=== PATIENT | female | born 2000 | race Caucasian/White ===

== ENCOUNTER 2018-09-22 18:45 | Emergency (ER) | payer MEDICAID, OTHER ==
[~2018-09-22] VITALS: Ht 162.6 cm; Wt 86.2 kg
--- OUTSIDE RECORDS SUMMARY | 2018-09-22 19:00 | XMS REPORT ---
Author Author SENIA HINTON Organization [facility] Address [address] [place] [address] Care Team Providers Care Chemical Process Equipment Operator Name Role Phone SENIA HINTON Unavailable PROBLEMS Unknown Problems ALLERGIES Substance Reaction Event Type Date Status Wellbutrin hives Drug Allergy Jan, Active ENCOUNTERS Encounter Location Date Diagnosis [facility] [id number] [address] Mar, [facility] [id number] [address] Mar, [facility] [id number] [address] Jan, Encounter for IUD removal Z30.432 and Screening for STD ( sexually transmitted disease) Z11.3 IMMUNIZATIONS No Known Immunizations SOCIAL HISTORY Never Assessed REASON FOR VISIT IUD removal , patient states she has had the Mirena since 2012 it was inserted in [place] -- huma hester PLAN OF CARE Activity Details Follow Up 1 Year with PCP Well woman Reason: VITAL SIGNS Height 5'4" in 2018-02-23 Weight 179.0 lbs 2018-02-23 Temperature 98.0 degrees Fahrenheit 2018-02-23 Heart Rate 86 bpm 2018-02-23 Respiratory Rate 22 2018-02-23 BMI 30.72 kg/m2 2018-02-23 Blood pressure systolic 120 mmHg 2018-02-23 Blood pressure diastolic 76 mmHg 2018-02-23 MEDICATIONS Unknown Medications RESULTS Name Result Date Reference Range TEST, URINE (IN HOUSE) 2018-02-23 RESULTS negative Lot # [id number] Control + Exp date 01/2019 GC/CHLAM URINE (STATE) 2018-02-23 CHLAMYDIA GC PROCEDURES Procedure Date Ordered Result Body Site REMOVE INTRAUTERINE DEVICE February 23, 2018 URINE TEST February 23, 2018 No Charge February 23, 2018 INSTRUCTIONS MEDICATIONS ADMINISTERED No Known Medications MEDICAL (GENERAL) HISTORY Type Description Date Surgical History tonsillectomy 06/2017
--- OUTSIDE RECORDS SUMMARY | 2018-09-22 19:00 | XMS REPORT ---
Author Author SENIA HINTON Organization [facility] [place] Address [address] [place] [address] Care Team Providers Care Education Teacher Name Role Phone SENIA HINTON Unavailable PROBLEMS Unknown Problems ALLERGIES No Information ENCOUNTERS Encounter Location Date Diagnosis [facility] [place] [id number] [address] Mar, [facility] [place] [id number] [address] Mar, [facility] [place] [id number], [place] [address] Jan, Encounter for IUD removal Z30.432 and Screening for STD ( sexually transmitted disease) Z11.3 IMMUNIZATIONS No Known Immunizations SOCIAL HISTORY Never Assessed REASON FOR VISIT STD treatment (STATE) -- huma hester PLAN OF CARE VITAL SIGNS MEDICATIONS Unknown Medications RESULTS No Results PROCEDURES No Known procedures INSTRUCTIONS MEDICATIONS ADMINISTERED No Known Medications MEDICAL (GENERAL) HISTORY Type Description Date Surgical History tonsillectomy 06/2017
--- OUTSIDE RECORDS SUMMARY | 2018-09-22 19:00 | XMS REPORT ---
Author Author SENIA HINTON Organization [facility] Address [address] [place] [address] Care Team Providers Care Oil Recovery Operator Name Role Phone SENIA HINTON Unavailable PROBLEMS Unknown Problems ALLERGIES No Information ENCOUNTERS Encounter Location Date Diagnosis [facility] [address] [facility] [id number] [address] Mar, [facility] [address] [facility] [id number] [address] Mar, [facility] [address] [id number] [address] Jan, Encounter for IUD removal Z30.432 and Screening for STD ( sexually transmitted disease) Z11.3 IMMUNIZATIONS No Known Immunizations SOCIAL HISTORY Never Assessed REASON FOR VISIT Lab Results PLAN OF CARE VITAL SIGNS MEDICATIONS Unknown Medications RESULTS No Results PROCEDURES No Known procedures INSTRUCTIONS MEDICATIONS ADMINISTERED No Known Medications MEDICAL (GENERAL) HISTORY Type Description Date Surgical History tonsillectomy 06/2017
--- NOTE | 2018-09-22 19:16 | ED GU-Female ---
General Stated Complaint: VAG BLEEDING/6 WEEKS PREG Source: patient History of Present Illness Date Seen by Provider: Sep 22, 2018 Time Seen by Provider: 19:05 Initial Comments PT ARRIVES VIA POV FROM HOME STATES SHE IS 4 WEEKS --LMP 08/06/18 STATES SHE BEGAN HAVING VAGINAL BLEEDING/SPOTTING LAST PM STATES SHE HAS USED 2 PANTILINERS TOTAL SINCE BLEEDING STARTED STATES BLEEDING IS "GETTING WORSE BECAUSE IT HASN'T STOPPED" SLIGHT LOWER ABDOMINAL CRAMPING NO PROBLEMS URINATING STATES SHE CALLED THIS AM AND WAS SEEN AT [facility] THIS AM FOR THIS PROBLEM AND HAD ULTRASOUND THERE --PT STATES "EVERYTHING IS FINE AND THE BABY'S FINE" IS SUPPOSED TO HAVE A FOLLOW UP APPOINTMENT NEXT WEEK, BUT APPOINTMENT IS NOT MADE YET PT IS AB 0 PT STATES HER BLOOD TYPE IS A+ PCP: [facility], DR. WARREN Allergies and Home Medications Allergies Coded Allergies: bupropion (Verified Allergy, Unknown, 09/22/18) Patient Home Medication List Home Medication List Reviewed: Yes Review of Systems Review of Systems Constitutional: no symptoms reported Respiratory: no symptoms reported Cardiovascular: no symptoms reported Gastrointestinal: see HPI, abdominal pain Genitourinary: see HPI : Yes LMP: Aug 06, 2018 Musculoskeletal: no symptoms reported Skin: no symptoms reported Psychiatric/Neurological: No Symptoms Reported Endocrine: No Symptoms Reported Hematologic/Lymphatic: No Symptoms Reported Past Jfthewq-Slgqjk-Ziculj Hx Patient Social History Alcohol Use: Denies Use Recreational Drug Use: Yes ("EVERYTHING" INCLUDING METH AND COCAINE. DENIES HEROIN OR RX DRUGS. DENIES IV USE) Drug of Choice: "EVERYTHING" INCLUDING METH AND COCAINE. DENIES HEROIN, RX DRUGS OR IV USE Smoking Status: Current Everyday Smoker (< 1/2 PPD) Recent Foreign Travel: No Contact w/Someone Who Travel: No Past Medical History Surgeries: Yes Adenoidectomy, Tonsillectomy Respiratory: No Cardiac: No Neurological: No : Yes Hx : 1 Hx Para: 0 Hx Total # of Abortions (Sp): 0 Reproductive Disorders: No Genitourinary: No Gastrointestinal: No Musculoskeletal: No Endocrine: No HEENT: No Cancer: No Psychosocial: Yes Suicide Attempts, Depression Integumentary: No Blood Disorders: No Physical Exam Vital Signs Vital Signs - First Documented 09/22/18 19:06 Temp 98.3 Pulse 84 Resp 18 B/P (MAP) 124/77 Capillary Refill : Height, Weight, BMI Height: '" Weight: lbs. oz. kg; BMI Method: General Appearance: WD/WN, no apparent distress HEENT: other (POOR DENTITION--EXTENSIVE DECAY--ESPECIALLY AT GUM LINE, INCLUDING FRONT TEETH. ) Cardiovascular: regular rate, rhythm, no murmur Respiratory: normal breath sounds, no respiratory distress, no accessory muscle use Gastrointestinal: non tender, soft Pelvic: normal external exam, vaginal bleeding (SCANT AMOUNT OF BLOOD IN CANAL. NO ACTIVE BLEEDING. NO CLOTS), other (CERVIX CLOSED. 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 nml as tested, no motor/sensory deficits, alert, normal mood/affect, oriented x 3 Skin: normal color, warm/dry Progress/Results/Core Measures Suspected Sepsis SIRS Temperature: Pulse: Respiratory Rate: Laboratory Tests 09/22/18 19:15: White Blood Count 11.2H Blood Pressure / Mean: Laboratory Tests 09/22/18 19:15: Creatinine 0.70, Platelet Count 297 Results/Orders Lab Results Laboratory Tests Test 09/22/18 19:15 Range/Units White Blood Count 11.2 H 4.3-11.0 10^3/uL Red Blood Count 4.61 4.35-5.85 10^6/uL Hemoglobin 13.4 11.5-16.0 G/DL Hematocrit 39 35-52 % Mean Corpuscular Volume 84 80-99 FL Mean Corpuscular Hemoglobin 29 25-34 PG Mean Corpuscular Hemoglobin Concent 35 32-36 G/DL Red Cell Distribution Width 13.3 10.0-14.5 % Platelet Count 297 130-400 10^3/uL Mean Platelet Volume 9.7 7.4-10.4 FL Neutrophils (%) (Auto) 60 42-75 % Lymphocytes (%) (Auto) 32 12-44 % Monocytes (%) (Auto) 6 0-12 % Eosinophils (%) (Auto) 2 0-10 % Basophils (%) (Auto) 0 0-10 % Neutrophils # (Auto) 6.7 1.8-7.8 X 10^3 Lymphocytes # (Auto) 3.6 1.0-4.0 X 10^3 Monocytes # (Auto) 0.7 0.0-1.0 X 10^3 Eosinophils # (Auto) 0.2 0.0-0.3 10^3/uL Basophils # (Auto) 0.0 0.0-0.1 10^3/uL Sodium Level 139 135-145 MMOL/L Potassium Level 3.6 3.6-5.0 MMOL/L Chloride Level 106 98-107 MMOL/L Carbon Dioxide Level 22 21-32 MMOL/L Anion Gap 11 5-14 MMOL/L Blood Urea Nitrogen 9 7-18 MG/DL Creatinine 0.70 0.60-1.30 MG/DL Estimat Glomerular Filtration Rate > 60 BUN/Creatinine Ratio 13 Glucose Level 87 70-105 MG/DL Calcium Level 9.9 8.5-10.1 MG/DL My Orders Orders - FREDERICK BOWEN DO Abo Rh Type (09/22/18 19:10) Basic Metabolic Panel (09/22/18 19:10) Cbc With Automated Diff (09/22/18 19:10) Hcg,Quantitative (09/22/18 19:10) Vital Signs/I&O 09/22/18 19:06 Temp 98.3 Pulse 84 Resp 18 B/P (MAP) 124/77 Capillary Refill : Progress Note : Progress Note NO ULTRASOUND AVAILABILITY TONIGHT PT DID NOT USE ANY PADS/PANTILINERS DURING ER STAY Departure Impression Primary Impression: Threatened in first trimester Disposition: 01 HOME, SELF-CARE Condition: Stable Departure-Patient Inst. Referrals: LION WARREN MD (PCP/Family) Primary Care Physician Patient Instructions: Bleeding With (DC), Threatened Miscarriage (DC) Add. Discharge Instructions: NOTHING IN VAGINA--NO TAMPONS, DOUCHING OR INTERCOURSE TYLENOL NEEDED FOR PAIN LOTS OF FLUIDS FOLLOW UP WITH [facility] IN 1-2 DAYS FOR RECHECK RETURN TO ER IF SOAKING MORE THAN 1 MAXI PAD AN HOUR FREDERICK BWOEN DO Sep 22, 2018 19:16
[2018-09-22 19:22] LABS: BASOPHILS % (AUTO) 0 % (0-10); EOSINOPHILS # (AUTO) 0.2 10^3/uL (0.0-0.3); EOSINOPHILS % (AUTO) 2 % (0-10); HEMATOCRIT 39 % (35-52); HEMOGLOBIN 13.4 G/DL (11.5-16.0); LYMPHOCYTES # (AUTO) 3.6 X 10^3 (1.0-4.0); LYMPHOCYTES % (AUTO) 32 % (12-44); MEAN CORPUSCULAR HEMOGLOBIN 29 PG (25-34); MEAN CORPUSCULAR HGB CONC 35 G/DL (32-36); MEAN CORPUSCULAR VOLUME 84 FL (80-99); MEAN PLATELET VOLUME 9.7 FL (7.4-10.4); MONOCYTES # (AUTO) 0.7 X 10^3 (0.0-1.0); MONOCYTES % (AUTO) 6 % (0-12); NEUTROPHILS # (AUTO) 6.7 X 10^3 (1.8-7.8); NEUTROPHILS % (AUTO) 60 % (42-75); PLATELET COUNT 297 10^3/uL (130-400); RED CELL DISTRIBUTION WIDTH 13.3 % (10.0-14.5); WHITE BLOOD COUNT 11.2 10^3/uL (4.3-11.0)
[2018-09-22 19:40] LABS: BUN/CREATININE RATIO 13; CALCIUM 9.9 MG/DL (8.5-10.1); CARBON DIOXIDE 22 MMOL/L (21-32); CHLORIDE 106 MMOL/L (98-107); GFR ESTIMATED > 60; GLUCOSE 87 MG/DL (70-105); POTASSIUM 3.6 MMOL/L (3.6-5.0); SODIUM 139 MMOL/L (135-145)
--- NOTE | 2018-09-22 20:00 | NUR ---
INSTRUCTIONS VERBALLY REVIEWED WITH DR. JESSI MD. @ 1999 UPON ENTERING PT ROOM WITH DISCHARGE INSTRUCTIONS, PT NOT IN ROOM. PT SIGNED OUT WITH HEEL FINISHER PRIOR TO LEAVING ED.
== END 2018-09-22 20:00 | disposition home or self-care (01) ==
LOC: ER 18:49
DX: O20.0 Threatened abortion (principal); O99.341 Other mental disorders complicating pregnancy, first trimester; F32.9 Major depressive disorder, single episode, unspecified; O99.331 Smoking (tobacco) complicating pregnancy, first trimester; F17.210 Nicotine dependence, cigarettes, uncomplicated; Z90.89 Acquired absence of other organs; Z91.5 Personal history of self-harm; Z3A.01 Less than 8 weeks gestation of pregnancy; Z88.8 Allergy status to other drugs, medicaments and biological substances
CPT/HCPCS: 36415; 80048; 84702; 85025; 86900; 86901

== ENCOUNTER → 2018-09-25 | Outpatient (CLI) | payer MEDICAID | LOC: LAB 09:41 | PROVIDERS: ATTEND Family Medicine | DX: O20.8 Other hemorrhage in early pregnancy (principal) | CPT/HCPCS: 36415; 84702 ==

== ENCOUNTER 2018-10-14 09:41 | Day surgery (SDC) | payer MEDICAID ==
[~2018-10-14] VITALS: Ht 162.6 cm; Wt 89.4 kg
[2018-10-14 09:45] VITALS: BP 113/65
[2018-10-14 10:17] LABS: BASOPHILS % (AUTO) 1 % (0-10); EOSINOPHILS # (AUTO) 0.2 10^3/uL (0.0-0.3); EOSINOPHILS % (AUTO) 4 % (0-10); HEMATOCRIT 40 % (35-52); HEMOGLOBIN 13.5 G/DL (11.5-16.0); LYMPHOCYTES # (AUTO) 2.1 X 10^3 (1.0-4.0); LYMPHOCYTES % (AUTO) 32 % (12-44); MEAN CORPUSCULAR HEMOGLOBIN 29 PG (25-34); MEAN CORPUSCULAR HGB CONC 34 G/DL (32-36); MEAN CORPUSCULAR VOLUME 84 FL (80-99); MEAN PLATELET VOLUME 9.3 FL (7.4-10.4); MONOCYTES # (AUTO) 0.4 X 10^3 (0.0-1.0); MONOCYTES % (AUTO) 7 % (0-12); NEUTROPHILS # (AUTO) 3.8 X 10^3 (1.8-7.8); NEUTROPHILS % (AUTO) 58 % (42-75); PLATELET COUNT 319 10^3/uL (130-400); RED CELL DISTRIBUTION WIDTH 13.3 % (10.0-14.5); WHITE BLOOD COUNT 6.6 10^3/uL (4.3-11.0)
[2018-10-14] MEDS ORDERED: LACTATED RINGERS 1,000 ML IV PRN (10:24)
[2018-10-14] MEDS ORDERED: FAMOTIDINE 20MG/2ML IV (PEPCID) IV ONE (10:30)
[2018-10-14] MEDS ORDERED: ceFAZolin INJECTION 1,000 MG in WATER (STERILE) FOR INJECTION 10 ML IV ONE (10:45)
[2018-10-14] MEDS ORDERED: LIDOCAINE PF 2% 5 ML (XYLOCAINE) VIAL ONE (10:58)
[2018-10-14] MEDS ORDERED: ONDANSETRON 4 MG/2 ML (SDV) Z0FRAN ONE (10:58)
[2018-10-14] MEDS ORDERED: proPOfol 200 MG/20 ML (DIPRIVAN) VIAL IV ONE (10:58)
[2018-10-14] MEDS ORDERED: MIDAZOLAM 2 MG/2 ML (VERSED) VIAL ONE (10:59)
[2018-10-14] MEDS ORDERED: fentaNYL INJECTION 100 MCG/2 ML AMP ONE (10:59)
[2018-10-14] MEDS ORDERED: DEXAMETHASONE 10 MG/ML (DECADRON) 1 ML VIAL ONE (10:59)
[2018-10-14] MEDS ORDERED: SEVOFLURANE (ULTANE) 15 ML INHAL SOLN ONE ×2 (11:00→12:35)
[2018-10-14] MEDS: ceFAZolin INJECTION 1,000 MG ONE ×2 (12:20→13:28)
[2018-10-14] MEDS: WATER (STERILE) FOR INJECTION 10 ML ONE ×2 (12:20→13:28)
[2018-10-14] MEDS ORDERED: KETOROLAC 30 MG/ML VIAL ONE (12:34)
[2018-10-14] MEDS ORDERED: KETOROLAC 30 MG/ML VIAL IVP ONE (13:00)
--- NOTE | 2018-10-14 13:00 | Operative Report ---
Operative Report Date of Procedure/Surgery Oct 14, 2018 Surgeon (s) SENAIT BATEMAN DO Repair Specialist (s): NA Post-Operative Diagnosis Missed Procedure Performed Suction dilation and curettage Description of Procedure Anesthesia Type: General Estimated blood loss (mL): 250 Specimen(s) collected/removed endometrial curettings Description of the Procedure With informed consent the patient was taken to the operating room, where general anesthesia was found to be adequate. A straight cath was used to drain the bladder. A speculum was placed in the vagina and the cervix was grasped with a tenaculum. The cervix was closed so it was gently dilated with Toribio Dilators to allow insertion of a 8 curved curette. A suction curette was done and then followed with a sharp curette until a gritty texture was heard. A follow up suction was done to remove any additional blood clots from the uterus. The tenaculum was removed from the cervix and then a figure of eight stitch of 2-0 Vicryl was placed to control bleeding from the tenaculum site. The instruments were removed from the vagina. The patient tolerated the procedure well. She was awakened and taken to recovery in stable condition. Sponge, needle and instrument counts correct times two. Findings of the Procedure moderate amount products of conception Allergies and Home Medications Allergies Coded Allergies: bupropion (Verified Allergy, Unknown, 09/22/18) coconut (Unverified Adverse Reaction, Unknown, 10/14/18) Patient Home Medication List Home Medication List Reviewed: Yes SENAIT BATEMAN DO Oct 14, 2018 13:00
[2018-10-14] MEDS ORDERED: IBUP-1773 PO (13:04)
[2018-10-14] MEDS ORDERED: OXYC-529 PO (13:04)
[2018-10-14] MEDS ORDERED: METH0.2T47 PO (13:04)
[2018-10-14] MEDS ORDERED: ACET-2267 PO (13:04)
--- NOTE | 2018-10-14 13:05 | Discharge Inst-Women's Service ---
Discharge Inst-Women's Serv Depart Medication/Instructions New, Converted or Re-Newed RX: RX on Chart Final Diagnosis missed (miscarriage) Consults/Follow Up Additional Follow Up: Yes ([address] Diaz) Activity Activity: Activity as Tolerated Driving Instructions: No Driving for 24 Hours NO SMOKING: NO SMOKING Nothing Inside Vagina: No Douching, No [place], No Tampons Diet Discharge Diet: No Restrictions Symptoms to Report to : Bleeding Excessive, Pain Increased, Fever Over 101 Degrees F, Vaginal Bleeding Increase, Cramps in Feet or Legs, Vaginal Discharge Foul For Any Problems or Questions: Contact Your Physician Skin/Wound Care Bathing Instructions: SENAIT Worthington DO Oct 14, 2018 13:05
[2018-10-14] MEDS ORDERED: morphine INJ 10 MG/ML 1ML (SYR OR VIAL) IVP ONE (13:15)
[2018-10-14] MEDS ORDERED: MEPERIDINE (DEMEROL) INJ 50 MG/ML IVP ONE (13:15)
[2018-10-14] MEDS ORDERED: ONDANSETRON 4 MG/2 ML (SDV) Z0FRAN IVP PRN (13:15)
--- NOTE | 2018-10-14 13:40 | Anesthesia-General Post-Op ---
General Patient Condition Mental Status/LOC: Same as Preop Cardiovascular: Satisfactory Nausea/Vomiting: Absent Respiratory: Satisfactory Pain: Controlled Complications: Absent Post Op Complications Complications None Follow Up Care/Instructions Patient Instructions None needed. Anesthesia/Patient Condition Patient Condition Patient is doing well, no complaints, stable vital signs, no apparent adverse anesthesia problems. No complications reported per nursing. JONI STEPHENS CRNA Oct 14, 2018 13:40
[2018-10-14 13:50] VITALS: BP 116/73
[2018-10-14] MEDS ORDERED: ACETAMINOPHEN 500 MG TAB (TYLENOL) PO ONE (14:15)
[2018-10-14 14:20] VITALS: BP 115/74
[2018-10-14 14:50] VITALS: BP 118/74
[2018-10-14 15:10] VITALS: BP 118/74
== END 2018-10-14 15:15 | disposition home or self-care (01) ==
LOC: SDC 09:41
PROVIDERS: ATTEND Obstetrics & Gynecology
DX: O02.1 Missed abortion (principal); K21.9 Gastro-esophageal reflux disease without esophagitis; Z87.891 Personal history of nicotine dependence
CPT/HCPCS: 36415; 85025; 87081

== ENCOUNTER 2019-02-17 08:18 | Day surgery (SDC) | payer MEDICAID ==
[2019-02-17] VITALS (11 sets, daily range): BP systolic 104–124; BP diastolic 56–75
[~2019-02-17] VITALS: Ht 162.6 cm; Wt 91.7 kg
[~2019-02-17 08:18] MED LIST: ACET-2267 PO; IBUP-1773 PO; METH0.2T47 PO; OXYC-529 PO
[2019-02-17 09:22] LABS: BASOPHILS % (AUTO) 0 % (0-10); EOSINOPHILS # (AUTO) 0.2 10^3/uL (0.0-0.3); EOSINOPHILS % (AUTO) 2 % (0-10); HEMATOCRIT 37 % (35-52); HEMOGLOBIN 12.5 G/DL (11.5-16.0); LYMPHOCYTES % (AUTO) 22 % (12-44); MEAN CORPUSCULAR HEMOGLOBIN 29 PG (25-34); MEAN CORPUSCULAR HGB CONC 34 G/DL (32-36); MEAN CORPUSCULAR VOLUME 84 FL (80-99); MEAN PLATELET VOLUME 9.7 FL (7.4-10.4); MONOCYTES # (AUTO) 0.5 X 10^3 (0.0-1.0); MONOCYTES % (AUTO) 6 % (0-12); NEUTROPHILS # (AUTO) 6.3 X 10^3 (1.8-7.8); NEUTROPHILS % (AUTO) 70 % (42-75); PLATELET COUNT 272 10^3/uL (130-400); RED CELL DISTRIBUTION WIDTH 13.5 % (10.0-14.5)
--- NOTE | 2019-02-17 09:27 | History & Physical-Surgical ---
HPO-Surgical History of Present Illness Chief Complaint: No heartbeat; confirmed by US Referral from [facility] due to missed ab Diagnosis/Surgical Indication: missed AB Procedure: D&C Date of Surgery: Feb 17, 2019 Weight (Pounds): 202 Weight (Ounces): 2.0 Height (Feet): 5 Height (Inches): 4.00 Allergies and Home Medications Allergies Coded Allergies: bupropion (Verified Allergy, Unknown, 09/22/18) coconut (Unverified Adverse Reaction, Unknown, 10/14/18) Patient Home Medication List Home Medication List Reviewed: Yes Past Cnpvuys-Joykhd-Cioxze Hx Patient Social History Number of Children: 0 Number of living children: 0 Employed/Student: employed Drug of Choice: "EVERYTHING" INCLUDING METH AND COCAINE. DENIES HEROIN, RX DRUGS OR IV USE Former Smoker, Quit: Aug 07, 2018 Type Used: Cigarettes 2nd Hand Smoke Exposure: No Recent Foreign Travel: No Contact w/other who traveled: No Recent Hopitalizations: No Seasonal Allergies Seasonal Allergies: No Surgeries Yes Adenoidectomy, Tonsillectomy Respiratory No Cardiovascular No Neurological No Reproductive System Hx Reproductive Disorders: No Genitourinary No Gastrointestinal No Musculoskeletal No Endocrine History of Endocrine Disorders: No HEENT History of HEENT Disorders: No Cancer No Psychosocial History of Psychiatric Problem: Yes Behavioral Health Disorders: Suicide Attempts, Depression Integumentary History of Skin or Integumenta: No Blood Transfusions History of Blood Disorders: No Exam Vital Signs Capillary Refill : Labs Laboratory Tests Test 02/17/19 09:10 Range/Units General Appearance: Alert HEENT: Atraumatic Respiratory: Clear to Auscultation Cardiovascular: Regular Rate Assessment/Plan Assessment and Plan 1. Missed 2. Recurrent miscarriage Plan - suction dilation and curettage. Risks include bleeding, infection, injury to bowel bladder and ureter. Would like testing on tissue if possible. Prophylactic doxycycline (200 mg po) prior to surgery. SENAIT BATEMAN DO Feb 17, 2019 09:27
[2019-02-17] MEDS ORDERED: DOXYCYCLINE IV ONE ×2 (09:45)
[2019-02-17] MEDS ORDERED: NS IV ONE ×2 (09:45)
[2019-02-17] MEDS ORDERED: SEVOFLURANE (ULTANE) 15 ML INHAL SOLN ONE ×2 (09:59→10:58)
[2019-02-17] MEDS ORDERED: LIDOCAINE PF 2% 5 ML (XYLOCAINE) VIAL ONE (09:59)
[2019-02-17] MEDS ORDERED: proPOfol 200 MG/20 ML (DIPRIVAN) VIAL IV ONE (09:59)
[2019-02-17] MEDS ORDERED: MIDAZOLAM 2 MG/2 ML (VERSED) VIAL ONE (09:59)
[2019-02-17] MEDS ORDERED: fentaNYL INJECTION 100 MCG/2 ML AMP ONE (10:00)
[2019-02-17] MEDS ORDERED: DOXY25TA35 PO (10:01)
[2019-02-17] MEDS ORDERED: LURA20TA PO (10:01)
[2019-02-17] MEDS ORDERED: ONDANSETRON 4 MG/2 ML (SDV) Z0FRAN ONE ×2 (10:03→11:57)
--- NOTE | 2019-02-17 10:56 | Progress Note-Pre Operative ---
Pre-Operative Progress Note H&P Reviewed The H&P was reviewed, patient examined and no changes noted. Date Seen by Provider: Feb 17, 2019 Time Seen by Provider: 10:45 Date H&P Reviewed: Feb 17, 2019 Time H&P Reviewed: 09:30 Pre-Operative Diagnosis: missed , recurrent SENAIT BATEMAN DO Feb 17, 2019 10:56
[2019-02-17] MEDS ORDERED: KETOROLAC 30 MG/ML VIAL ONE (10:58)
[2019-02-17] MEDS ORDERED: METHYLERGONOVINE 0.2 MG/ML (METHERGINE) AMP ONE (11:19)
[2019-02-17] MEDS ORDERED: TRANEXAMIC ACID 100 MG/ML 10 ML INJECTION IV ONE (11:28)
[2019-02-17] MEDS ORDERED: LACTATED RINGERS 1,000 ML IV ONE (11:46)
[2019-02-17] MEDS ORDERED: HYDROmorphone 2 MG/ML VIAL (DILAUDID) ONE (11:56)
[2019-02-17] MEDS ORDERED: IBUP-1773 PO (11:59)
[2019-02-17] MEDS ORDERED: OXC5T PO (11:59)
[2019-02-17] MEDS ORDERED: METH0.2T47 PO (11:59)
[2019-02-17] MEDS ORDERED: DOXY200T3 PO (11:59)
[2019-02-17] MEDS ORDERED: ONDANSETRON 4 MG/2 ML (SDV) Z0FRAN IVP PRN (12:00)
[2019-02-17] MEDS ORDERED: HYDROmorphone 2 MG/ML VIAL (DILAUDID) IV ONE (12:00)
[2019-02-17] MEDS ORDERED: MEPERIDINE (DEMEROL) INJ 50 MG/ML IVP ONE (12:00)
[2019-02-17] MEDS ORDERED: morphine INJ 10 MG/ML 1ML (SYR OR VIAL) IVP ONE (12:00)
[2019-02-17] MEDS ORDERED: PROMETHAZINE INJ 25 MG/ML (PHENERGAN) AMP IVP ONE (12:00)
--- NOTE | 2019-02-17 13:26 | Operative Report ---
Operative Report Date of Procedure/Surgery Feb 17, 2019 Surgeon (s) SENAIT BATEMAN DO Office Helper Clerical (s): NA Post-Operative Diagnosis suction dilation and curettage vaginal hemorrhage Procedure Performed suction dilation and curettage Description of Procedure Anesthesia Type: General Estimated blood loss (mL): 1200 Specimen(s) collected/removed products of conception Description of the Procedure With informed consent the patient was taken to the operating room where general anesthesia was found to be adequate. She was then draped in the usual sterile fashion. the bladder was drained of clear, yellow urine with a straight catheter. A speculum was now placed in the vagina and the cervix was grasped with a single toothed tenaculum. The cervix was noted to be non dilated. It was now dilated with Toribio dilators. I then did a suction dilation with a curved suction curette and removed a moderate amount of products of conception. I then followed with a sharp curette until a gritty texture was heard. At this point, she started bleeding. She was not bleeding prior to the surgery. There was a slow continual flow. I continued to suction to attempt to control the hemorrhage. She was given 0.2 mg Methergine x 1. I massaged the uterus, drained the bladder and she still was bleeding. She continued to bleed. I did do a repeat sharp curette and there was a small amount of residual tissue. However, she continued to bleed, slowly but continually. There was no evidence of laceration. she was given 1 gram of IV TXA and eventually with massage and suction, the bleeding slowed. EBL was 1200 ml however. The instruments were removed from the uterus and the vagina. There was good hemostasis at this point. The patient was awakened and taken to recovery in stable. Due to the extensive bleeding, and repeated instrumentation in the uterus, she will be continued on po Doxycycline x 3 days and po Methergine x 3 days. Findings of the Procedure moderate amounts of products of conception, post hemorrhage Allergies and Home Medications Allergies Coded Allergies: bupropion (Verified Allergy, Unknown, 02/17/19) coconut (Unverified Adverse Reaction, Unknown, 02/17/19) Home Medications Doxycycline Hyclate 200 Mg Tablet.dr, 200 MG PO BID Prescribed by: SENAIT BATEMAN on 02/17/19 1154 Doxylamine Succinate 25 Mg Tablet, 25 MG PO HS, (Reported) Ibuprofen 600 Mg Tablet, 600 MG PO Q6H Prescribed by: SENAIT BATEMAN on 02/17/19 115 Lurasidone HCl 20 Mg Tablet, 0.5 TAB PO DAILY, (Reported) Methylergonovine Maleate 0.2 Mg Tablet, 0.2 MG PO Q6H Prescribed by: SENAIT BATEMAN on 02/17/19 115 Oxycodone Hcl 5 Mg Tab, 5 MG PO Q4H PRN for PAIN-SEVERE Prescribed by: SENAIT BATEMAN on 02/17/19 115 Patient Home Medication List Home Medication List Reviewed: SENAIT Forbes DO Feb 17, 2019 13:25
--- NOTE | 2019-02-17 13:27 | Discharge Inst-Women's Service ---
Discharge Inst-Women's Serv Depart Medication/Instructions New, Converted or Re-Newed RX: RX on Chart Final Diagnosis missed post hemorrhage Consults/Follow Up Additional Follow Up: Yes (1 week with Joe) Activity Activity: Activity as Tolerated Driving Instructions: No Driving for 24 Hours NO SMOKING: NO SMOKING Nothing Inside Vagina: No Douching, No [place], No Tampons Diet Discharge Diet: No Restrictions Symptoms to Report to : Swelling Increased, Bleeding Excessive, Eyesight Changes, Fever Over 101 Degrees F, Vaginal Bleeding Increase (greater than 1 pad per hour s 2 hours), Vaginal Discharge Foul For Any Problems or Questions: Contact Your Physician SENAIT BATEMAN DO Feb 17, 2019 13:27
--- OUTSIDE RECORDS SUMMARY | 2019-02-17 18:30 | XMS REPORT ---
Author Author KELVIN LION [facility] Address [address] [place] [address] Care Team Providers Care Gas Utility Worker Name Role Phone HIRAM WARRENHANY Unavailable PROBLEMS Type Condition ICD9-CM Code LFK08-KP Code Onset Dates Condition Status SNOMED Code Problem Mood disorder F39 Active 21499042 Problem Vagina bleeding N93.9 Active 344641625 Problem Amenorrhea N91.2 Active 26296380 Problem Other chronic pain G89.29 Active 93013147 Problem Bipolar disorder, in partial remission, most recent episode depressed F31.75 Active 87958942 ALLERGIES No Information ENCOUNTERS Encounter Location Date Diagnosis [facility] [id number] [place] [address] Dec, [facility] [id number] [place] [address] November, [facility] [id number] [place] [address] November, [facility] [id number] [place] [address] November, [facility] [id number] [place] [address] November, [facility] [id number] [place] [address] Oct, [facility] [address] [address] Oct, test negative Z32.02 [facility] [id number] [place] [address] Oct, Mood disorder F39 [facility] [id number] [place] [address] 04 Oct, 2018 Mood disorder F39 [facility] [address] [address] 29 Sep, 2018 Pre-syncope R55 and Miscarriage O03.9 [facility] [address] [address] 20 Sep, 2018 [facility] [id number] [place] [address] 20 Sep, 2018 [facility] [address] [place] [address] 19 Sep, 2018 Mood disorder F39 [facility] [id number] [place] [address] 14 Sep, 2018 Vaginal bleeding affecting early O20.8 [facility] [address] [place] [address] 14 Sep, 2018 Mood disorder F39 [facility] [id number] [place] [address] 13 Sep, 2018 Vaginal bleeding affecting early O20.8 [facility] [id number] [place] [address] 08 Sep, 2018 Mood disorder F39 [facility] [address] [address] 07 Sep, 2018 [facility] [address] [address] 07 Sep, 2018 Caries K02.9 ; Oral health maintenance status requiring routine preventive dental care K08.9 and Dental examination Z01.20 [facility] [address] [address] 07 Sep, 2018 [facility] [address] [address] 07 Sep, 2018 Vagina bleeding N93.9 [facility] [address] [place] [address] Sep, [facility] [address] [address] Sep, First trimester bleeding O20.9 and 7 weeks gestation of Z3A.01 [facility] [id number] [address] Sep, Mood disorder F39 [facility] [id number] [place] [address] Sep, [facility] [address] [place] [address] Sep, Vaginal bleeding affecting early O20.8 and care in first trimester Z34.91 [facility] [id number] [place] [address] Sep, Screen for STD (sexually transmitted disease) Z11.3 and Vagina bleeding N93.9 [facility] [address] [place] [address] Sep, Vaginal bleeding affecting early O20.8 and care in first trimester Z34.91 [facility] [address] [place] [address] Sep, [facility] [address] [place] [address] Sep, Normal , first Z34.00 and care in first trimester Z34.91 [facility] [address] [address] Sep, [facility] [address] [place] [address] Sep, [facility] [address] [place] [address] Sep, [facility] [address] [place] [address] Sep, [facility] [address] [place] [address] 14 Sep, 2018 Mood disorder F39 [place] [id number] [place] [address] 14 Sep, 2018 [place] [id number] [place] [address] 14 Sep, 2018 [place] [address] [address] 13 Sep, 2018 Normal , first Z34.00 ; care in first trimester Z34.91 ; Syncope, unspecified syncope type R55 ; Chest pain, unspecified type R07.9 ; Bipolar disorder, in partial remission, most recent episode depressed F31.75 ; 5 weeks gestation of Z3A.01 ; Left anterior knee pain M25.562 ; Low back pain M54.5 and Other chronic pain G89.29 [place] [id number] [place] [address] 11 Sep, 2018 [facility] [id number] [place] [address] 09 Sep, 2018 Amenorrhea N91.2 ; Dizziness R42 and Positive test Z32.01 [place] [id number] [place] [address] 17 Mar, 2018 [place] [id number] [place] [address] Mar, [place] [id number] [place] [address] Jan, Encounter for IUD removal Z30.432 and Screening for STD (sexually transmitted disease) Z11.3 IMMUNIZATIONS No Known Immunizations SOCIAL HISTORY Never Assessed REASON FOR VISIT per Dr. Wyatt PLAN OF CARE Activity Details Follow Up prn Reason: VITAL SIGNS Height 5'4" in 2018-09-30 Weight 192.9 lbs 2018-09-30 Temperature 98.4 degrees Fahrenheit 2018-09-30 Heart Rate 93 bpm 2018-09-30 Respiratory Rate 20 2018-09-30 BMI 33.11 kg/m2 2018-09-30 Blood pressure systolic 98 mmHg 2018-09-30 Blood pressure diastolic 58 mmHg 2018-09-30 MEDICATIONS Medication Instructions Dosage Frequency Start Date End Date Duration Status Vitamin 27-0.8 mg Orally Once a day 1 tablet 24h 13 Sep, 2018 30 day(s) Active Melatonin Active Macrobid 100 MG Orally every 12 hrs 1 capsule with food 12h Sep, 7 day(s) Active RESULTS No Results PROCEDURES No Known procedures INSTRUCTIONS MEDICATIONS ADMINISTERED No Known Medications MEDICAL (GENERAL) HISTORY Type Description Date Medical History Bipolar disorder Medical History Borderline personality disorder Medical History Anxiety Medical History Depression Medical History hx of reactive attachment disorder diagnosis Medical History no hx of seizures Surgical History tonsillectomy 06/2017 Surgical History D & C 09/2018
--- OUTSIDE RECORDS SUMMARY | 2019-02-17 18:30 | XMS REPORT ---
Author Author SEVERO PEREZ [facility] Address [address] [place] [address] Care Team Providers Care Meter Engineer Name Role Phone SEVERO PEREZ Unavailable PROBLEMS Type Condition ICD9-CM Code VTX98-IF Code Onset Dates Condition Status SNOMED Code Problem Mood disorder F39 Active 42553092 Problem Vagina bleeding N93.9 Active 844652678 Problem Amenorrhea N91.2 Active 85916154 Problem Other chronic pain G89.29 Active 08165878 Problem Bipolar disorder, in partial remission, most recent episode depressed F31.75 Active 27316348 ALLERGIES No Information ENCOUNTERS Encounter Location Date Diagnosis [place] [address] [address] Dec, [facility] [id number] [place] [address] Oct, [place] [address] [address] 04 Oct, 2018 Mood disorder F39 [place] [id number] [place] [address] Sep, Pre-syncope R55 and Miscarriage O03.9 [facility] [id number] [place] [address] Sep, [facility] [id number] [place] [address] Sep, [place] [address] [address] Sep, Mood disorder F39 [place] [id number] [place] [address] 14 Sep, 2018 Vaginal bleeding affecting early O20.8 [facility] [address], [place] [address] 14 Sep, 2018 Mood disorder F39 [facility] [id number] [place] [address] Sep, Vaginal bleeding affecting early O20.8 [facility] [id number] [place] [address] 08 Sep, 2018 Mood disorder F39 [facility] [id number] [place] [address] Sep, [facility] [id number] [place] [address] Sep, Caries K02.9 ; Oral health maintenance status requiring routine preventive dental care K08.9 and Dental examination Z01.20 [place] [id number] [place] [address] Sep, [facility] [id number] [place] [address] Sep, Vagina bleeding N93.9 [facility] [id number] [place] [address] Sep, [facility] [id number] [place] [address] Sep, First trimester bleeding O20.9 and 7 weeks gestation of Z3A.01 [facility] [address], [place] [address] Sep, Mood disorder F39 [facility] [address], [place] [address] Sep, [facility] [address] [place] [address] Sep, Vaginal bleeding affecting early O20.8 and care in first trimester Z34.91 [facility] [id number] [place] [address] Sep, Screen for STD (sexually transmitted disease) Z11.3 and Vagina bleeding N93.9 [facility] [id number] [place] [address] 22 Sep, 2018 Vaginal bleeding affecting early O20.8 and care in first trimester Z34.91 [facility] [address] [place] [address] Sep, [facility] [id number] [place] [address] Sep, Normal , first Z34.00 and care in first trimester Z34.91 [facility] [id number] [place] [address] 21 Sep, 2018 [facility] [id number] [place] [address] Sep, [facility] [id number] [place] [address] Sep, [facility] [address] [place] [address] Sep, [facility] [id number] [place] [address] 14 Sep, 2018 Mood disorder F39 [facility] [address] [place] [address] 14 Sep, 2018 [facility] [address] [place] [address] 14 Sep, 2018 [facility] [address] [place] [address] 13 Sep, 2018 Normal , first Z34.00 ; care in first trimester Z34.91 ; Syncope, unspecified syncope type R55 ; Chest pain, unspecified type R07.9 ; Bipolar disorder, in partial remission, most recent episode depressed F31.75 ; 5 weeks gestation of Z3A.01 ; Left anterior knee pain M25.562 ; Low back pain M54.5 and Other chronic pain G89.29 [facility] [address], [place] [address] Sep, [facility] [id number] [place] [address] Sep, Amenorrhea N91.2 ; Dizziness R42 and Positive test Z32.01 [facility] [id number] [place] [address] Mar, [facility] [id number] [place] [address] Mar, [facility] [id number] [place] [address] Jan, Encounter for IUD removal Z30.432 and Screening for STD (sexually transmitted disease) Z11.3 IMMUNIZATIONS No Known Immunizations SOCIAL HISTORY Never Assessed REASON FOR VISIT Requests return call PLAN OF CARE VITAL SIGNS MEDICATIONS Unknown [...]
--- OUTSIDE RECORDS SUMMARY | 2019-02-17 18:30 | XMS REPORT ---
Author Author WANDA ADAM [facility] Address [address] [place] [address] Care Team Providers Care Mobile Sales Expert Name Role Phone WANDA ADAM Unavailable PROBLEMS Type Condition ICD9-CM Code HCM00-WP Code Onset Dates Condition Status SNOMED Code Problem Mood disorder F39 Active 10561575 Problem Vagina bleeding N93.9 Active 083843372 Problem Amenorrhea N91.2 Active 23236011 Problem Other chronic pain G89.29 Active 78552218 Problem Bipolar disorder, in partial remission, most recent episode depressed F31.75 Active 88562931 ALLERGIES No Information ENCOUNTERS Encounter Location Date Diagnosis [place] [address] [address] Dec, [facility] [id number] [place] [address] 15 Oct, 2018 [facility] [address] [address] 04 Oct, 2018 Mood disorder F39 [facility] [id number] [place] [address] 29 Sep, 2018 Pre-syncope R55 and Miscarriage O03.9 [facility] [id number] [place] [address] Sep, [facility] [id number] [place] [address] Sep, [facility] [id number] [place] [address] 19 Sep, 2018 Mood disorder F39 [facility] [id number] [place] [address] 14 Sep, 2018 Vaginal bleeding affecting early O20.8 [place] [address] [address] 14 Sep, 2018 Mood disorder F39 [facility] [id number] [place] [address] 13 Sep, 2018 Vaginal bleeding affecting early O20.8 [facility] [id number] [place] [address] 08 Sep, 2018 Mood disorder F39 [facility] [id number] [place] [address] Sep, [facility] [id number] [place] [address] Sep, Caries K02.9 ; Oral health maintenance status requiring routine preventive dental care K08.9 and Dental examination Z01.20 [place] [id number] [place] [address] Sep, [place] [id number] [place] [address] Sep, Vagina bleeding N93.9 [place] [id number] [place] [address] Sep, [place] [id number] [place] [address] Sep, First trimester bleeding O20.9 and 7 weeks gestation of Z3A.01 [place] [id number] [place] [address] Sep, Mood disorder F39 [facility] [address] [place] [address] Sep, [place] [id number] [place] [address] Sep, Vaginal bleeding affecting early O20.8 and care in first trimester Z34.91 [place] [id number] [place] [address] Sep, Screen for STD (sexually transmitted disease) Z11.3 and Vagina bleeding N93.9 [facility] [id number] [place] [address] 22 Sep, 2018 Vaginal bleeding affecting early O20.8 and care in first trimester Z34.91 [facility] [id number] [place] [address] Sep, [facility] [address] [address] Sep, Normal , first Z34.00 and care in first trimester Z34.91 [facility] [id number] [place] [address] 21 Sep, 2018 [facility] [id number] [place] [address] Sep, [facility] [id number] [place] [address] Sep, [facility] [id number] [place] [address] Sep, [facility] [id number] [place] [address] 14 Sep, 2018 Mood disorder F39 [facility] [id number] [place] [address] Sep, [facility] [id number] [place] [address] 14 Sep, 2018 [facility] [id number] [place] [address] 13 Sep, 2018 Normal , first Z34.00 ; care in first trimester Z34.91 ; Syncope, unspecified syncope type R55 ; Chest pain, unspecified type R07.9 ; Bipolar disorder, in partial remission, most recent episode depressed F31.75 ; 5 weeks gestation of Z3A.01 ; Left anterior knee pain M25.562 ; Low back pain M54.5 and Other chronic pain G89.29 [facility] [address] [address] Sep, [facility] [address] [place] [address] 09 Sep, 2018 Amenorrhea N91.2 ; Dizziness R42 and Positive test Z32.01 [facility] [address] [place] [address] Mar, [facility] [address] [place] [address] Mar, [facility] [address] [address] Jan, Encounter for IUD removal Z30.432 and Screening for STD (sexually transmitted disease) Z11.3 IMMUNIZATIONS No Known Immunizations SOCIAL HISTORY Never Assessed REASON FOR VISIT Eye Exam PLAN OF CARE VITAL SIGNS MEDICATIONS Unknown [...]
--- OUTSIDE RECORDS SUMMARY | 2019-02-17 18:30 | XMS REPORT ---
Author Author KELVIN LION [facility] Address [address] [place] [address] Care Team Providers Care Medicine Technologist Name Role Phone LION WARREN Unavailable PROBLEMS Type Condition ICD9-CM Code FUA92-HN Code Onset Dates Condition Status SNOMED Code Problem Mood disorder F39 Active 29711323 Problem Vagina bleeding N93.9 Active 350419326 Problem Amenorrhea N91.2 Active 61837337 Problem Other chronic pain G89.29 Active 22126635 Problem Bipolar disorder, in partial remission, most recent episode depressed F31.75 Active 35040600 ALLERGIES No Information ENCOUNTERS Encounter Location Date Diagnosis [place] [address] [address] Dec, [facility] [address] [place] [id number] [place] [address] Oct, [facility] [address] [address] 04 Oct, 2018 Mood disorder F39 [facility] [address] [id number] [place] [address] 29 Sep, 2018 Pre-syncope R55 and Miscarriage O03.9 [facility] [address] [id number] [place] [address] Sep, [facility] [id number] [place] [address] Sep, [facility] [address] [address] 19 Sep, 2018 Mood disorder F39 [facility] [address] [id number] [place] [address] 14 Sep, 2018 Vaginal bleeding affecting early O20.8 [facility] [address] [address] 14 Sep, 2018 Mood disorder F39 [facility] [address] [id number] [place] [address] 13 Sep, 2018 Vaginal bleeding affecting early O20.8 [facility] [address] [id number] [place] [address] 08 Sep, 2018 Mood disorder F39 [facility] [id number] [place] [address] Sep, [facility] [address] [id number] [place] [address] Sep, Caries K02.9 ; Oral health maintenance status requiring routine preventive dental care K08.9 and Dental examination Z01.20 [place] [address] [id number] [place] [address] Sep, [facility] [address] [id number] [place] [address] Sep, Vagina bleeding N93.9 [facility] [address] [id number] [place] [address] Sep, [facility] [id number] [place] [address] Sep, First trimester bleeding O20.9 and 7 weeks gestation of Z3A.01 [facility] [id number] [place] [address] Sep, Mood disorder F39 [facility] [id number] [place] [address] Sep, [facility] [address] [id number] [place] [address] Sep, Vaginal bleeding affecting early O20.8 and care in first trimester Z34.91 [facility] [address] [id number] [place] [address] Sep, Screen for STD (sexually transmitted disease) Z11.3 and Vagina bleeding N93.9 [facility] [address] [id number] [place] [address] 22 Sep, 2018 Vaginal bleeding affecting early O20.8 and care in first trimester Z34.91 [facility] [id number] [place] [address] Sep, [facility] [id number] [place] [address] 21 Sep, 2018 Normal , first Z34.00 and care in first trimester Z34.91 [facility] [id number] [place] [address] 21 Sep, 2018 [facility] [address] [address] [id number] [place] [address] Sep, [facility] [address] [id number] [place] [address] Sep, [facility] [address] [id number] [place] [address] 14 Sep, 2018 [facility] [id number] [place] [address] 14 Sep, 2018 Mood disorder F39 [facility] [id number] [place] [address] 14 Sep, 2018 [facility] [id number] [place] [address] 14 Sep, 2018 [facility] [address] [address] [id number] [place] [address] 13 Sep, 2018 Normal , first Z34.00 ; care in first trimester Z34.91 ; Syncope, unspecified syncope type R55 ; Chest pain, unspecified type R07.9 ; Bipolar disorder, in partial remission, most recent episode depressed F31.75 ; 5 weeks gestation of Z3A.01 ; Left anterior knee pain M25.562 ; Low back pain M54.5 and Other chronic pain G89.29 [facility] [address] [address] Sep, [facility] [id number] [place] [address] Sep, Amenorrhea N91.2 ; Dizziness R42 and Positive test Z32.01 [facility] [address] [place] [address] Mar, [facility] [address] [place] [address] Mar, [facility] [id number] [place] [address] Jan, Encounter for IUD removal Z30.432 and Screening for STD (sexually transmitted disease) Z11.3 IMMUNIZATIONS No Known Immunizations SOCIAL HISTORY Never Assessed REASON FOR VISIT U/S OB follow up A.BOOKLESS RDMS RVT PLAN OF CARE VITAL SIGNS MEDICATIONS Unknown Medications RESULTS Name Result Date Reference Range Ultrasound : OB F/U (IN-HOUSE) 2018-10-06 PROCEDURES Procedure Date Ordered Result Body Site OB US, FOLLOW-UP, PER FETUS October 06, 2018 INSTRUCTIONS MEDICATIONS ADMINISTERED No Known Medications MEDICAL (GENERAL) HISTORY Type Description Date Medical History Bipolar disorder Medical History Borderline personality disorder Medical History Anxiety Medical History Depression Medical History hx of reactive attachment disorder diagnosis Medical History no hx of seizures Surgical History tonsillectomy 06/2017 Surgical History D & C 09/2018
--- OUTSIDE RECORDS SUMMARY | 2019-02-17 18:31 | XMS REPORT | Continuity of Care Document ---
Author Organization Unknown Address Unknown Allergies Active Description Code Type Severity Reaction Onset Reported/Identified Relationship to Patient Clinical Status Yes bupropion [id number] Drug Allergy Unknown N/A 09/22/2018 Yes coconut [id number] Drug Allergy Unknown N/A 10/14/2018 Medications There is no data. Problems Date Dx Coded Attending Type Code Diagnosis Diagnosed By 09/22/2018 FREDERICK BOWEN DO, Ot F17.210 NICOTINE DEPENDENCE, CIGARETTES, UNCOMPL 09/22/2018 FREDERICK BOWEN DO Ot F32.9 MAJOR DEPRESSIVE DISORDER, SINGLE EPISOD 09/22/2018 FREDERICK BOWEN DO Ot O20.0 THREATENED 09/22/2018 FREDERICK BOWEN DO Ot O20.9 HEMORRHAGE IN EARLY , UNSPECIFI 09/22/2018 FREDERICK BOWEN DO Ot O99.331 SMOKING (TOBACCO) COMPLICATING 09/22/2018 FREDERICK BOWEN DO Ot O99.341 OTH MENTAL DISORDERS COMPLICATING PREGNA 09/22/2018 FREDERICK BOWEN DO Ot Z3A.01 LESS THAN 8 WEEKS GESTATION OF 09/22/2018 FREDERICK BOWEN DO Ot Z88.8 ALLERGY STATUS TO OTH DRUG/MEDS/BIOL SUB 09/22/2018 FREDERICK BOWEN DO Ot Z90.89 ACQUIRED ABSENCE OF OTHER ORGANS 09/22/2018 FREDERICK BOWEN DO Ot Z91.5 PERSONAL HISTORY OF SELF-HARM 09/26/2018 FREDERICK BOWEN DO, Ot F17.210 NICOTINE DEPENDENCE, CIGARETTES, UNCOMPL 09/26/2018 FREDERICK BOWEN DO Ot F32.9 MAJOR DEPRESSIVE DISORDER, SINGLE EPISOD 09/26/2018 FREDERICK BOWEN DO Ot O20.0 THREATENED 09/26/2018 FREDERICK BOWEN DO Ot O20.9 HEMORRHAGE IN EARLY , UNSPECIFI 09/26/2018 JESSI DO, FREDERICK K Ot O99.331 SMOKING (TOBACCO) COMPLICATING 09/26/2018 COFFEY TUSHAR DUNNEA K Ot O99.341 OT MENTAL DISORDERS COMPLICATING PREGNA 09/26/2018 COFFEY FREDERICK DUNNE K Ot Z3A.01 LESS THAN 8 WEEKS GESTATION OF 09/26/2018 COFFEY FREDERICK DUNNE K Ot Z88.8 ALLERGY STATUS TO OTH DRUG/MEDS/BIOL SUB 09/26/2018 COFFEY FREDERICK K Ot Z90.89 ACQUIRED ABSENCE OF OTHER ORGANS 09/26/2018 COFFEY FREDERICK K Ot Z91.5 PERSONAL HISTORY OF SELF-HARM 09/26/2018 KELVIN LÓPEZ, LION Martinez Ot O20.8 OTHER HEMORRHAGE IN EARLY 09/28/2018 JESSI FREDERICK K Ot F17.210 NICOTINE DEPENDENCE, CIGARETTES, UNCOMPL 09/28/2018 JESSI FREDERICK Woo Ot F32.9 MAJOR DEPRESSIVE DISORDER, SINGLE EPISOD 09/28/2018 JESSI FREDERICK K Ot O20.0 THREATENED 09/28/2018 JESSI FREDERICK K Ot O20.9 HEMORRHAGE IN EARLY , UNSPECIFI 09/28/2018 JESSI TUSHAR DUNNEA K Ot O99.331 SMOKING (TOBACCO) COMPLICATING 09/28/2018 JESSI FREDERICK K Ot O99.341 OT MENTAL DISORDERS COMPLICATING PREGNA 09/28/2018 JESSI FREDERICK K Ot Z3A.01 LESS THAN 8 WEEKS GESTATION OF 09/28/2018 JESSI FREDERICK Woo Ot Z88.8 ALLERGY STATUS TO OTH DRUG/MEDS/BIOL SUB 09/28/2018 [facility] FREDERICK K Ot Z90.89 ACQUIRED ABSENCE OF OTHER ORGANS 09/28/2018 JESSI DO FREDERICK K Ot Z91.5 PERSONAL HISTORY OF SELF-HARM 09/28/2018 KELVIN LÓPEZ, LION Martinez Ot O20.8 OTHER HEMORRHAGE IN EARLY 10/14/2018 SENAIT BATEMAN DO Ot K21.9 GASTRO-ESOPHAGEAL REFLUX DISEASE WITHOUT 10/14/2018 SENAIT BATEMAN DO Ot O02.1 MISSED 10/14/2018 SENAIT BATEMAN DO Ot Z87.891 PERSONAL HISTORY OF NICOTINE DEPENDENCE 10/17/2018 SENAIT BATEMAN DO Ot K21.9 GASTRO-ESOPHAGEAL REFLUX DISEASE WITHOUT 10/17/2018 SENAIT BATEMAN DO Ot O02.1 MISSED 10/17/2018 SENAIT BATEMAN DO Ot Z87.891 PERSONAL HISTORY OF NICOTINE DEPENDENCE 10/17/2018 SENAIT BATEMAN DO Ot K21.9 GASTRO-ESOPHAGEAL REFLUX DISEASE WITHOUT 10/17/2018 SENAIT BATEMAN DO Ot O02.1 MISSED 10/17/2018 SENAIT BATEMAN DO Ot Z87.891 PERSONAL HISTORY OF NICOTINE DEPENDENCE 10/17/2018 LION WARREN MD Ot O20.8 OTHER HEMORRHAGE IN EARLY 12/02/2018 LION WARREN MD Ot O20.8 OTHER HEMORRHAGE IN EARLY 12/02/2018 LION WARREN MD Ot O20.8 OTHER HEMORRHAGE IN EARLY Procedures There is no data. Results Test Result Range Complete blood count (CBC) with automated white blood cell (WBC) differential - 09/22/18 19:15 Blood leukocytes automated count (number/volume) 11.2 10*3/uL 4.3-11.0 Blood erythrocytes automated count (number/volume) 4.61 10*6/uL 4.35-5.85 Venous blood hemoglobin measurement (mass/volume) 13.4 g/dL 11.5-16.0 Blood hematocrit (volume fraction) 39 % 35-52 Automated erythrocyte mean corpuscular volume 84 [foz_us] 80-99 Automated erythrocyte mean corpuscular hemoglobin (mass per erythrocyte) 29 pg 25-34 Automated erythrocyte mean corpuscular hemoglobin concentration measurement (mass/volume) 35 g/dL 32-36 Automated erythrocyte distribution width ratio 13.3 % 10.0- 14.5 Automated blood platelet count (count/volume) 297 10*3/uL 130-400 Automated blood platelet mean volume measurement 9.7 [foz_us] 7.4-10.4 Automated blood neutrophils/100 leukocytes 60 % 42-75 Automated blood lymphocytes/100 leukocytes 32 % 12-44 Blood monocytes/100 leukocytes 6 % 0-12 Automated blood eosinophils/100 leukocytes 2 % 0-10 Automated blood basophils/100 leukocytes 0 % 0-10 Blood neutrophils automated count (number/volume) 6.7 10*3 1.8-7.8 Blood lymphocytes automated count (number/volume) 3.6 10*3 1.0-4.0 Blood monocytes automated count (number/volume) 0.7 10*3 0.0- 1.0 Automated eosinophil count 0.2 10*3/uL 0.0-0.3 Automated blood basophil count (count/volume) 0.0 10*3/uL 0.0-0.1 Whole blood basic metabolic panel - 09/22/18 19:15 Serum or plasma sodium measurement (moles/volume) 139 mmol/L 135-145 Serum or plasma potassium measurement (moles/volume) 3.6 mmol/L 3.6-5.0 Serum or plasma chloride measurement (moles/volume) 106 mmol/L 98-107 Carbon dioxide 22 mmol/L 21-32 Serum or plasma anion gap determination (moles/volume) 11 mmol/L 5-14 Serum or plasma urea nitrogen measurement (mass/volume) 9 mg/dL 7-18 Serum or plasma creatinine measurement (mass/volume) 0.70 mg/dL 0.60-1.30 Serum or plasma urea nitrogen/creatinine mass ratio 13 NRG Serum or plasma creatinine measurement with calculation of estimated glomerular filtration rate > NRG Serum or plasma glucose measurement (mass/volume) 87 mg/dL 70-105 Serum or plasma calcium measurement (mass/volume) 9.9 mg/dL 8.5-10.1 ABO+Rh group - 09/22/18 19:15 ABO+Rh group AP NRG Transfusion band number TNP NRG Serum or plasma choriogonadotropin measurement (units/volume) - 09/22/18 19:15 Serum or plasma choriogonadotropin measurement (units/volume) 3641 m[iU]/mL <5 GC/CHLAMYDIA (SWAB OR URINE)-RAPID - 09/23/18 14:52 CHLAMYDIA TRACHOMATIS RNA, TMA NOT DETECTED NOT DETECTED NEISSERIA GONORRHOEAE RNA, TMA NOT DETECTED NOT DETECTED COMMENT NRG Serum or plasma choriogonadotropin measurement (units/volume) - 09/25/18 09:45 Serum or plasma choriogonadotropin measurement (units/volume) 2857 m[iU]/mL <5 Complete blood count (CBC) with automated white blood cell (WBC) differential - 10/14/18 10:01 Blood leukocytes automated count (number/volume) 6.6 10*3/uL 4.3-11.0 Blood erythrocytes automated count (number/volume) 4.71 10*6/uL 4.35-5.85 Venous blood hemoglobin measurement (mass/volume) 13.5 g/dL 11.5-16.0 Blood hematocrit (volume fraction) 40 % 35-52 Automated erythrocyte mean corpuscular volume 84 [foz_us] 80-99 Automated erythrocyte mean corpuscular hemoglobin (mass per erythrocyte) 29 pg 25-34 Automated erythrocyte mean corpuscular hemoglobin concentration measurement (mass/volume) 34 g/dL 32-36 Automated erythrocyte distribution width ratio 13.3 % 10.0- 14.5 Automated blood platelet count (count/volume) 319 10*3/uL 130-400 Automated blood platelet mean volume measurement 9.3 [foz_us] 7.4-10.4 Automated blood neutrophils/100 leukocytes 58 % 42-75 Automated blood lymphocytes/100 leukocytes 32 % 12-44 Blood monocytes/100 leukocytes 7 % 0-12 Automated blood eosinophils/100 leukocytes 4 % 0-10 Automated blood basophils/100 leukocytes 1 % 0-10 Blood neutrophils automated count (number/volume) 3.8 10*3 1.8-7.8 Blood lymphocytes automated count (number/volume) 2.1 10*3 1.0-4.0 Blood monocytes automated count (number/volume) 0.4 10*3 0.0- 1.0 Automated eosinophil count 0.2 10*3/uL 0.0-0.3 Automated blood basophil count (count/volume) 0.0 10*3/uL 0.0-0.1 Methicillin resistant Staphylococcus aureus (MRSA) screening culture - 10/14/18 10:01 Methicillin resistant Staphylococcus aureus (MRSA) screening culture NEG NRG T4 FREE - 02/01/19 13:09 T4, FREE 1.0 ng/dL 0.8-1.4 TSH - 02/01/19 13:09 TSH 0.21 mIU/L NRG CULTURE, URINE - 02/01/19 13:09 CULTURE, URINE, ROUTINE SEE NOTE NRG TEST AUTHORIZATION - 02/01/19 13:09 TEST NAME: T4, FREE NRG TEST CODE: [id number] NR CLIENT CONTACT: LION WARREN NR REPORT ALWAYS MESSAGE SIGNATURE NRG COMMENT NRG GC/CHLAMYDIA (SWAB OR URINE)-RAPID - 02/01/19 13:10 CHLAMYDIA TRACHOMATIS RNA, TMA NOT DETECTED NOT DETECTED NEISSERIA GONORRHOEAE RNA, TMA NOT DETECTED NOT DETECTED COMMENT NRG Complete blood count (CBC) with automated white blood cell (WBC) differential - 02/17/19 09:10 Blood leukocytes automated count (number/volume) 9.0 10*3/uL 4.3-11.0 Blood erythrocytes automated count (number/volume) 4.38 10*6/uL 4.35-5.85 Venous blood hemoglobin measurement (mass/volume) 12.5 g/dL 11.5-16.0 Blood hematocrit (volume fraction) 37 % 35-52 Automated erythrocyte mean corpuscular volume 84 [foz_us] 80-99 Automated erythrocyte mean corpuscular hemoglobin (mass per erythrocyte) 29 pg 25-34 Automated erythrocyte mean corpuscular hemoglobin concentration measurement (mass/volume) 34 g/dL 32-36 Automated erythrocyte distribution width ratio 13.5 % 10.0- 14.5 Automated blood platelet count (count/volume) 272 10*3/uL 130-400 Automated blood platelet mean volume measurement 9.7 [foz_us] 7.4-10.4 Automated blood neutrophils/100 leukocytes 70 % 42-75 Automated blood lymphocytes/100 leukocytes 22 % 12-44 Blood monocytes/100 leukocytes 6 % 0-12 Automated blood eosinophils/100 leukocytes 2 % 0-10 Automated blood basophils/100 leukocytes 0 % 0-10 Blood neutrophils automated count (number/volume) 6.3 10*3 1.8-7.8 Blood lymphocytes automated count (number/volume) 2.0 10*3 1.0-4.0 Blood monocytes automated count (number/volume) 0.5 10*3 0.0- 1.0 Automated eosinophil count 0.2 10*3/uL 0.0-0.3 Automated blood basophil count (count/volume) 0.0 10*3/uL 0.0-0.1 Blood type T Indirect antibody screen panel - 02/17/19 09:10 WRISTBAND NUMBER [id number] NRG ABO+Rh group AP NRG Blood group antibody screen NEGATIVE NRG Encounters ACCT No. Visit Date/Time Discharge Status Pt. Type Provider Facility Loc./Unit Complaint [id number] 02/14/2019 09:00:00 ACT Outpatient JESUS RAY LAC [facility] [id number] 02/01/2019 11:20:00 Document Registration [id number] 09/23/2018 14:20:00 Document Registration [id number] 10/14/2018 09:41:00 10/14/2018 15:15:00 DIS Outpatient SENAIT BATEMAN DO [facility] SDC MISSED AB [id number] 09/25/2018 09:41:00 09/25/2018 23:59:59 CLS Outpatient LION WARREN MD [facility] LAB O20.8 [id number] 09/22/2018 18:49:00 09/22/2018 20:00:00 DIS Emergency FREDERICK BOWEN DO [facility] ER VAG BLEEDING/6 WEEKS PREG [id number] 02/17/2019 09:24:00 Document Registration
== END 2019-02-17 14:31 | disposition home or self-care (01) ==
LOC: SDC 08:18
PROVIDERS: ATTEND Obstetrics & Gynecology
DX: O02.1 Missed abortion (principal); F32.9 Major depressive disorder, single episode, unspecified
CPT/HCPCS: 36415; 85025; 86850; 86900; 86901; 87081